=== PATIENT | female | born 1985 | race Caucasian/White ===

== ENCOUNTER → 2022-06-24 15:04 | Outpatient (BNVA) | payer OTHER, SELFPAY | PROVIDERS: Family Provider Electrodiagnostic Medicine; Visit Provider Family Medicine | DX: Z30.9 Encounter for contraceptive management, unspecified (principal) | CPT/HCPCS: 81025 ==

== ENCOUNTER → 2022-07-21 15:30 | Outpatient (BNVA) | payer OTHER, SELFPAY | PROVIDERS: Family Provider Electrodiagnostic Medicine; PCP Family Medicine; Visit Provider Family Medicine | DX: Z34.90 Encounter for supervision of normal pregnancy, unspecified, unspecified trimester (principal) | CPT/HCPCS: 80307; 81025; 84144; 84443; 84702; 85025; 86850; 86900; 87491; 87591; 87806; 99202 ==

== ENCOUNTER 2022-07-28 15:15 | Outpatient (CLI) | payer OTHER, SELFPAY ==
--- NOTE | 2022-07-28 15:00 | US_ITS ---
WS: [email or web address] EARLY OBSTETRICAL ULTRASOUND (<14 WEEKS). HISTORY: COMPARISON: None available. Single intrauterine gestational sac is identified. Cardiac activity at 160 BPM. Middleberg-rump length junior sures 1.6 cm which corresponds to a gestation of 7w6d. Normal-appearing yolk sac and amnion demonstra lyly. No subchorionic hemorrhage. No free fluid. Normal size ovaries with no mass. US/US OB <= 14 weeks fetus [id number] IMPRESSION: 1. Single intrauterine gestation of 7 weeks 6 days with EDC of 03/10/2023. 2. Normal cardiac activity.
== END 2022-07-28 15:16 | disposition home or self-care (01) ==
LOC: RAD 15:20
PROVIDERS: PCP Family Medicine; Visit Provider Family Medicine
DX: Z34.91 Encounter for supervision of normal pregnancy, unspecified, first trimester (principal); Z3A.01 Less than 8 weeks gestation of pregnancy
CPT/HCPCS: 76801; 80307; 81025; 84144; 84443; 84702; 85025; 86850; 86900; 87491; 87591; 87806

== ENCOUNTER → 2022-08-11 11:38 | Outpatient (BNVA) | payer OTHER, SELFPAY | PROVIDERS: PCP Family Medicine; Visit Provider Family Medicine | DX: Z34.90 Encounter for supervision of normal pregnancy, unspecified, unspecified trimester (principal) | CPT/HCPCS: 80307; 81000; 81025; 87086; 87491; 87591; 87624 ==

== ENCOUNTER → 2022-10-17 07:44 | Outpatient (BNVA) | payer OTHER, SELFPAY | PROVIDERS: PCP Family Medicine; Visit Provider Family Medicine | DX: Z34.80 Encounter for supervision of other normal pregnancy, unspecified trimester (principal) | CPT/HCPCS: 81511 ==

== ENCOUNTER 2022-10-24 09:11 | Outpatient (CLI) | payer OTHER, SELFPAY ==
--- NOTE | 2022-10-24 09:30 | US_ITS ---
WS: [email or web address] OBSTETRICAL ULTRASOUND COMPLETE HISTORY: Anatomy US COMPARISON: 07/28/2022 Single intrauterine gestation in Cephalic presentation. Cervix is Closed and normal length. Cervical length is 4.3 cm. Normal amount of amniotic fluid surrounds the fetus. Placenta: Placenta is anterior and low-lying. There is a [place] along the posterior uterine w all causing the lower uterine segment and cervix to be obscured. With resolution of the [place] I expect there to be no previa or low-lying placenta. This should be reevaluated. Placenta grade 0 Heart: 136 BPM. No 2-D images of the heart are submitted. Outflow tracts are not imaged. Anatomy: Intracranial structures and spine are normal. kidneys, stomach and urinary bladd er are unremarkable. Abdominal wall, three-vessel cord and cord insertion site are normal. 4 extremities are present. profile: No profile imaged. Gender: Female measurements: BPD = 4.6 cm = 20w0d; HC = 17.4 cm = 19w6d; AC = 15.5 cm = 20w4d; FL = 3.3 cm = 20w3d; EFW: 354 g. Biometry is internally concordant. AGA by ultrasound: 20w2d IRMA by ultrasound: 03/11/2023 US/US OB >= 14 weeks fetus [id number] IMPRESSION: 1. Single intrauterine gestation of 20w2d with an IRMA of 03/11/2023. Appropria te growth since the first trimester ultrasound. 2. No imaging of the heart is submitted. profile not imaged due to position of the fetus. Recommend additional imaging of the heart and pro file along with follow-up imaging of the cervix. Remaining anatomy is negative.
== END 2022-10-24 09:12 | disposition home or self-care (01) ==
PROVIDERS: PCP Family Medicine; Visit Provider Family Medicine
DX: Z34.82 Encounter for supervision of other normal pregnancy, second trimester (principal)
CPT/HCPCS: 76805; 80307; 81000; 81025; 87086; 87491; 87591; 87624

== ENCOUNTER 2022-11-17 08:19 | Outpatient (CLI) | payer OTHER, SELFPAY ==
--- NOTE | 2022-11-17 08:30 | US_ITS ---
WS: [email or web address] ULTRASOUND OB LIMITED TECHNIQUE: Limited ultrasound examination of the fetus. CLINICAL INFORMATION: Follow up imaging of profile,heart, cervix COMPARISON: 10/24/2022 FINDINGS: Closed cervix measures 4.1 cm. Single interuterine gestation. presentation is vertex placental location is anterior and low-lying with placenta previa visualized today. Placenta grade: 0 . heart rate 131 BPM. Anatomy: presentation is vertex. Normal four-chamber heart view with the RIGHT and LEFT ventric ular outflow tracts. Profile evaluation is limited due to position. No other abnormalities IMPRESSION: 1. Four-chamber heart view is visualized today with LEFT and RIGHT ventricular outflow tracts. 2. Placenta is anterior with placenta previa. Recommend third trimester follow-up. 3. Cervix is long and closed measuring 4.1 cm. 4. Limited evaluation of the profile due to positioning.
== END 2022-11-17 08:20 | disposition home or self-care (01) ==
PROVIDERS: PCP Family Medicine; Visit Provider Family Medicine
DX: O44.43 Low lying placenta NOS or without hemorrhage, third trimester (principal); Z3A.00 Weeks of gestation of pregnancy not specified
CPT/HCPCS: 76815

== ENCOUNTER → 2022-11-24 13:25 | Outpatient (BNVA) | payer OTHER, SELFPAY | PROVIDERS: PCP Family Medicine; Visit Provider Family Medicine | DX: R39.9 Unspecified symptoms and signs involving the genitourinary system (principal); Z34.80 Encounter for supervision of other normal pregnancy, unspecified trimester | CPT/HCPCS: 81000 ==

== ENCOUNTER → 2022-12-19 08:18 | Outpatient (BNVA) | payer OTHER, SELFPAY | PROVIDERS: PCP Family Medicine; Visit Provider Family Medicine | DX: O44.43 Low lying placenta NOS or without hemorrhage, third trimester | CPT/HCPCS: 82950 ==

== ENCOUNTER 2023-01-01 06:00 | Outpatient (RCR) | payer OTHER, SELFPAY | END 2023-01-27 23:59 | disposition home or self-care (01) | LOC: SPT 06:00 | PROVIDERS: PCP Family Medicine; Visit Provider Family Medicine | DX: R10.2 Pelvic and perineal pain (principal) | CPT/HCPCS: 97110; 97161; 97530 ==

== ENCOUNTER 2023-01-12 09:50 | Outpatient (CLI) | payer OTHER, SELFPAY ==
--- NOTE | 2023-01-12 10:00 | US_ITS ---
WS: [email or web address] ULTRASOUND OB FOCUSED HISTORY: Low lying placenta - follow up placenta in 9 wks COMPARISON: 11/17/2022 Single intrauterine gestation is identified in vertex position. Cervix is closed measuring 4.3 cm. heart rate at 141 BPM. Anterior placenta ends several centimeters above the internal cervical os. No previa. Placenta grade 1. Normal amount of amniotic fluid. IMPRESSION: Anterior placenta. No placenta previa.
== END 2023-01-12 09:51 | disposition home or self-care (01) ==
PROVIDERS: PCP Family Medicine; Visit Provider Family Medicine
DX: O44.43 Low lying placenta NOS or without hemorrhage, third trimester (principal); Z3A.00 Weeks of gestation of pregnancy not specified
CPT/HCPCS: 76815

== ENCOUNTER 2023-01-28 06:00 | Outpatient (RCR) | payer OTHER, SELFPAY | END 2023-02-26 23:59 | disposition home or self-care (01) | LOC: SPT 06:00 | PROVIDERS: PCP Family Medicine; Visit Provider Family Medicine | DX: R10.2 Pelvic and perineal pain (principal) | CPT/HCPCS: 97110 ==

== ENCOUNTER → 2023-02-05 10:17 | Outpatient (BNVA) | payer OTHER, SELFPAY | PROVIDERS: PCP Family Medicine; Visit Provider Family Medicine | DX: Z34.90 Encounter for supervision of normal pregnancy, unspecified, unspecified trimester (principal); Z51.81 Encounter for therapeutic drug level monitoring; Z34.80 Encounter for supervision of other normal pregnancy, unspecified trimester | CPT/HCPCS: 85025 ==

== ENCOUNTER → 2023-02-10 16:47 | Outpatient (BNVA) | payer OTHER, SELFPAY | PROVIDERS: PCP Family Medicine; Visit Provider Family Medicine | DX: Z34.80 Encounter for supervision of other normal pregnancy, unspecified trimester (principal) | CPT/HCPCS: 87081 ==

== ENCOUNTER 2023-02-26 17:14 | Outpatient (CLI) | payer OTHER, SELFPAY ==
[2023-02-26] VITALS (7 sets, daily range): BP systolic 123–135; BP diastolic 61–78; PULSE 69–90; BMI 30.4
[2023-02-26 18:18] LABS: Basophils % 0.4 %; Eosinophils # 0.2 10^3/uL (0.0-0.8); Eosinophils % 2.2 %; Hematocrit 34.9 % (36-47); Lymphocytes # 1.8 10^3/uL (0.8-4.8); Lymphocytes % 17.1 %; Mean Corpuscular HGB Conc 32.7 g/dL (30-55); Mean Corpuscular Hemoglobin 31.1 pg (27-33); Mean Corpuscular Volume 95.1 fl (85-98); Mean Platelet Volume 9.3 fL (7.4-10.4); Monocytes # 0.7 10^3/uL (0.2-0.9); Monocytes % 6.2 %; Neutrophils # 7.64 10^3/uL (1.8-7.7); Neutrophils % 72.2 %; Nucleated Red Blood Cells % 0 %; Platelet Count 182 10^3/cmm (157-399); Red Blood Count 3.67 10^6/uL (3.85-5.65); Red Cell Distribution Width 13.2 % (12.1-15.1); White Blood Count 10.58 10^3/uL (3.29-11.43)
[2023-02-26 18:28] LABS: Specific Gravity, Urine 1.015 (1.005-1.030); Urine Appearance SL Hazy (CLEAR); Urine Color Light yellow (Yellow); pH Urine 6.5 (5-7)
[2023-02-26 18:29] LABS: Bilirubin Urine Neg (Negative); Blood Urine Neg (Negative); Glucose Urine UA Norm (Normal); Ketones Urine Negative (Negative); Leukocyte Esterase Urine 1+ (Negative); Nitrate Urine Negative (Negative); Protein Urine Neg (Negative); Urobilinogen Urine Norm (Negative)
[2023-02-26 18:37] LABS: Add Urine Culture? No; Alanine Aminotransferase 11 U/L (0-33); Albumin Level 3.4 g/dL (3.5-5.2); Alkaline Phosphatase 150 U/L (35-105); Anion Gap 17.5 (5-19); Aspartate Amino Transferase 18 U/L (0-32); Bacteria Urine TRACE /hpf; Blood Urea Nitrogen 6 mg/dL (6-20); Calcium 9.1 mg/dL (8.5-10.5); Carbon Dioxide 18 mmol/L (22-29); Chloride 107 mmol/L (98-107); Fine Granular Casts Urine 0-4 /lpf; Globulin 2.8 g/dL (1.3-4.6); Glomerular Filtration Rate 179.6 mL/min (90-130); Glucose 101 mg/dL (65-115); Mucus Urine TRACE /hpf; Osmolality Calculated 286 mOsm/kg (285-295); Potassium 3.5 mmol/L (3.5-5.1); RBC Urine 0-4 /hpf (0-2); Sodium 139 mmol/L (136-145); Total Bilirubin 0.3 mg/dL (0.15-1.2); Total Protein 6.2 g/dL (6.6-8.7); Transitional Epi Cells Urine 0-4 /hpf; Uric Acid 3.1 mg/dL (2.4-5.7); WBC Urine 0-4 /hpf (0-5)
[2023-02-26 18:47] LABS: Urine Creatinine 28 mg/dL (28-217); Urine Protein Random 5 mg/dL
[2023-02-26 18:48] LABS: UPRO/UCREAT Ratio 0.18 mg/mg CR
--- NOTE | 2023-02-26 19:25 | PC.NURSE ---
1715 IV REMOVED WITH CATH INTACT.
== END 2023-02-26 19:20 | disposition home or self-care (01) ==
LOC: OPOB 17:15 → OBGYN 17:18
PROVIDERS: Absent Provider Family Medicine; PCP Family Medicine; Visit Provider Family Medicine
DX: O16.9 Unspecified maternal hypertension, unspecified trimester (principal); Z3A.00 Weeks of gestation of pregnancy not specified
CPT/HCPCS: 36415; 59025; 80053; 81000; 81001; 82570; 84156; 84550; 85025; 99211

== ENCOUNTER 2023-03-05 06:58 | Outpatient (CLI) | payer OTHER, SELFPAY ==
--- NOTE | 2023-03-05 07:15 | US_ITS ---
WS: [id number] LIMITED OBSTETRICAL ULTRASOUND HISTORY: Measuring small for gestational age - FATOUMATA/EFW COMPARISON: 07/28/2022, 01/12/2023 Presentation: Cephalic. Cervix: Closed and normal length. Placenta: Anterior, no previa or abruption. Grade: 3 HEART: FHR of 176 BPM. measurements: BPD = 9.6 cm = 39w1d; 82% HC = 34.2 cm = 39w3d; 45% AC = 35.7 cm = 39w4d; 81% FL = 7.8 cm = 39w5d; 68% FATOUMATA: 8.6 cm EFW: 3825 g; greater than the 90th percentile AGA by ultrasound: 39w3d IRMA by ultrasound: 03/09/2023 IMPRESSION: 1. Single intrauterine gestation of 39 weeks 3 days with an EDC of 03/09/2023. Appropriate biometry compared to the first trimester ultrasound. 2. Estimated weight greater than the 90th percentile for age. 3. Biometry percentiles are within normal limits. Both the abdominal circumference and BPD are just greater than the 80th percentiles. 4. Normal amniotic fluid. 5. Grade 3 placenta.
== END 2023-03-05 06:59 | disposition home or self-care (01) ==
LOC: RAD 06:58
PROVIDERS: PCP Family Medicine; Visit Provider Family Medicine
DX: O36.5930 Maternal care for other known or suspected poor fetal growth, third trimester, not applicable or unspecified (principal); Z3A.39 39 weeks gestation of pregnancy
CPT/HCPCS: 76815

== ENCOUNTER 2023-03-08 15:00 | Inpatient (IN) | payer OTHER, SELFPAY ==
[2023-03-08] VITALS (51 sets, daily range): BP systolic 110–174; BP diastolic 53–94; PULSE 77–130; RESP 16–18; TEMP 35.7–36.7; O2SAT 95–100; BMI 29.5
[2023-03-08] MEDS: fentaNYL 50 mcg/mL INJ 2mL IVP (15:13)
[2023-03-08] MEDS: lactated ringers 1,000 ML 999 ML IV ×2 (15:14→16:08)
[2023-03-08 15:49] LABS: Basophils % 0.3 %; Eosinophils # 0.1 10^3/uL (0.0-0.8); Eosinophils % 0.4 %; Hematocrit 38.9 % (36-47); Lymphocytes # 0.9 10^3/uL (0.8-4.8); Lymphocytes % 6.5 %; Mean Corpuscular HGB Conc 32.6 g/dL (30-55); Mean Corpuscular Hemoglobin 31.1 pg (27-33); Mean Corpuscular Volume 95.1 fl (85-98); Mean Platelet Volume 9.5 fL (7.4-10.4); Monocytes # 0.7 10^3/uL (0.2-0.9); Monocytes % 4.6 %; Neutrophils # 12.38 10^3/uL (1.8-7.7); Neutrophils % 87.1 %; Nucleated Red Blood Cells % 0 %; Platelet Count 166 10^3/cmm (157-399); Red Blood Count 4.09 10^6/uL (3.85-5.65); Red Cell Distribution Width 13.1 % (12.1-15.1); White Blood Count 14.21 10^3/uL (3.29-11.43)
[2023-03-08 15:59] LABS: Add Urine Microscopic? YES; Bilirubin Urine Neg (Negative); Blood Urine 3+ (Negative); Glucose Urine UA 1+ (Normal); Ketones Urine Negative (Negative); Leukocyte Esterase Urine 2+ (Negative); Nitrate Urine Negative (Negative); Protein Urine Neg (Negative); Urine Appearance Clear (CLEAR); Urine Color Straw (Yellow); Urobilinogen Urine Norm (Negative); pH Urine 7 (5-7)
[2023-03-08 16:00] LABS: Add Urine Culture? Yes; Bacteria Urine 1+ /hpf; RBC Urine 0-4 /hpf (0-2); Squamous Epithelial Cell Urine 0-4 /hpf (0-5); WBC Urine 15-25 /hpf (0-5)
--- NOTE | 2023-03-08 16:08 | ANES.PROC ---
Anesthesia Procedures Procedure/Date: 03/08/23 Epidural: Time Out Performed: Yes Consents Signed: Procedure Consent Consent: requested by attending/covering physician, from patient, risks and benefits reviewed and patient agrees to proceed Lumbar Level: L3-L4 Epidural position: sitting Epidural procedure: sterile prep of area, 1% lidocaine to numb the area, 18 g needle, neg for paresthesia, test dose given, 1.5% xylocaine 1:200k epi (5cc), 0.2% Ropivacaine bolus ml (4cc and Fentanyl 100mcg), placed PCEA, no systemic response, sterile dressing applied, L.U.D. no apparent complications and 0.2% Ropiavacaine @ mls/hr (10cc/) Additional Comments: Pt tolerated well
[2023-03-08] MEDS: ROPivacaine syringe 100 MG/50 ML SYRINGE 13 MG EPIDURAL (16:10)
--- NOTE | 2023-03-08 16:13 | ANES.PREANE2 ---
Pre-Anesthetic Assessment Height/Weight: Height 1.68 m Weight 83.007 kg Temp Pulse Resp BP Pulse Ox 96.4 F L 108 H 16 143/77 100 03/08/23 12:47 03/08/23 16:09 03/08/23 15:13 03/08/23 16:09 03/08/23 16:08 Preop Diagnosis: Labor pain YASSINE Was Beta Ritesh taken within 24 hours: N/A Was Clonidine taken within 24 hours: N/A Social No alcohol and No tobacco Exam alert, oriented x 3, clear to auscultation bilaterally and regular rate & rhythm Airway Submandibular: within normal limits Cervical ROM: within normal limits Mallampati: Class II Dentition: full History/ROS No significant history except as noted and No significant complaints Pulmonary None reported CV/HEM None reported None reported Hepatic None reported GI None reported Metabolic None reported Musc/skel None reported Neuropsych None reported Anesthetic Plan ASA status: 2 Anesthesia: Anesthesia Evaluation and Regional (specify below) (YASSINE) Risk of > 500 ml blood loss (7ml/kg in children): No Medications/Allergies Home Medications Medication Instructions Recorded Confirmed Last Taken Type prenat.vits,humberto,jza-ishe-ghusd 1 tab PO DAILY 08/11/22 02/26/23 Unknown History Allergies Allergy/AdvReac Type Severity Reaction Status Date / Time Sulfa (Sulfonamide Allergy ALGY-Rash Verified 02/05/23 09:28 Antibiotics) Current Medications Generic Name Dose Route Start Last Admin Trade Name Freq PRN Reason Stop Dose Admin Fentanyl 25 - 100 mcg 03/08/23 15:03 03/08/23 15:13 Fentanyl 50 Mcg/Ml Inj 2ml IVP 25 mcg Q1H PRN Administration SEVERE PAIN Lactated Ringer's 1,000 mls @ 999 mls/hr 03/08/23 14:44 03/08/23 16:08 Lactated Ringers IV 999 mls/hr .Q1H1M PRN Administration See label comments Ropivacaine 100 mg in 50 mls @ 13 mls/hr 03/08/23 14:45 03/08/23 16:10 Naropin Syringe EPIDURAL 13 mls/hr .Q3H51M MICHAEL Administration PFSH Anesthesia Medical History No pertinent past medical history Surgical History History of breast augmentation Family History Father Hypertension Denies family history of Colon cancer Ovarian cancer Diabetes Heart disease Hypercholesteremia Breast cancer Uterine cancer Thyroid disease Stroke Social History Smoking and tobacco/nicotine status: never used tobacco/nicotine Alcohol intake: never Substance/Drug Use: never Household members: spouse and children Marital status: Number of children: 3 Current occupational status: employed 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[employer] Sexually active: Yes Special sandro needs: No Agree to transfusion: Yes Female Reproductive History : 4 Para: 3 Spontaneous abortions: No Data Anesthesia 03/08/23 15:15 03/08/23 15:15 Short CBC 03/08/23 Range/Units 15:15 WBC 14.21 H (3.29-11.43) 10^3/uL Hgb 12.70 (11.27-16.99) g/dL Hct 38.9 (36-47) % MCV 95.1 (85-98) fl Plt Count 166 (157-399) 10^3/cmm Neut % (Auto) 87.1 % Neut # (Auto) 12.38 H (1.8-7.7) 10^3/uL Urine 03/08/23 Range/Units 15:15 Urine Color Straw (Yellow) Urine Appearance Clear (CLEAR) Urine pH 7 (5-7) Ur Specific [place] 1.000 L (1.005-1.030) Urine Protein Neg (Negative) Urine Glucose (UA) 1+ H (Normal) Urine Ketones Negative (Negative) Urine Nitrate Negative (Negative) Urine Bilirubin Neg (Negative) Ur Leukocyte Esterase 2+ H (Negative) Urine RBC 0-4 H (0-2) /hpf Urine WBC 15-25 H (0-5) /hpf Cardiac Studies: No Data to Display
[2023-03-08 16:15] LABS: Urine Creatinine 20 mg/dL (28-217); Urine Protein Random 4 mg/dL
[2023-03-08 16:17] LABS: Alanine Aminotransferase 10 U/L (0-33); Albumin Level 3.6 g/dL (3.5-5.2); Alkaline Phosphatase 158 U/L (35-105); Anion Gap 15.3 (5-19); Aspartate Amino Transferase 16 U/L (0-32); Blood Urea Nitrogen 5 mg/dL (6-20); Carbon Dioxide 20 mmol/L (22-29); Chloride 100 mmol/L (98-107); Globulin 3.1 g/dL (1.3-4.6); Glomerular Filtration Rate 179.6 mL/min (90-130); Glucose 90 mg/dL (65-115); Osmolality Calculated 271 mOsm/kg (285-295); Potassium 3.3 mmol/L (3.5-5.1); Sodium 132 mmol/L (136-145); Total Bilirubin 0.4 mg/dL (0.15-1.2); Total Protein 6.7 g/dL (6.6-8.7); Uric Acid 3.3 mg/dL (2.4-5.7)
--- NOTE | 2023-03-08 17:40 | P.HP_ITS ---
Providers/Chief Complaint 2 Admitting Physician: Paul Jackson MD Primary Care Provider: Paul Jackson MD Chief Complaint: contractions and vaginal bleeding History of Present Illness Gege Pulido is a 37 year old @ 39.3 wks by LMP consistent with 7 wk US. Preg c/b advanced maternal age, h/o quick delivery, intermittent elevated BP. The patient presented to labor and delivery triage on the morning of 03/08/2023 with concern for contractions. Contractions started at approximately 3:30 in the morning on 03/08/2023. They continued to get more frequent and more intense so she presented to labor and delivery. She initially did not make any change after 2 and half hours and was given the option of going home versus waiting another hour. After 1 more hour she did start to make change and had changed from 1 cm upon presentation to 3 cm dilation. For this reason she was kept for spontaneous labor. The patient denies any chest pains, shortness of breath, nausea, vomiting, diarrhea, constipation, leakage of fluid, vaginal bleeding, dysuria, fever. She has had some sore throat that started this morning. Medications/Allergies Home Medications Medication Instructions Recorded Confirmed Last Taken Type prenat.vits,humberto,xlv-rftp-iojni 1 tab PO DAILY 08/11/22 02/26/23 Unknown History Allergies Allergy/AdvReac Type Severity Reaction Status Date / Time Sulfa (Sulfonamide Allergy ALGY-Rash Verified 02/05/23 09:28 Antibiotics) PFSH Acute 2 PFSH: Medical History No pertinent past medical history Surgical History History of breast augmentation Family History Father Hypertension Denies family history of Colon cancer Ovarian cancer Diabetes Heart disease Hypercholesteremia Breast cancer Uterine cancer Thyroid disease Stroke Social History Smoking and tobacco/nicotine status: never used tobacco/nicotine Alcohol intake: never Substance/Drug Use: never Household members: spouse and children Marital status: Number of children: 3 Current occupational status: employed 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[employer] Sexually active: Yes Special sandro needs: No Agree to transfusion: Yes Female Reproductive History: : 4 Para: 3 Spontaneous abortions: N o Vitals/I&O/Wt Last Vital Signs Temp 97.2 F L 03/08/23 17:20 Pulse 99 03/08/23 17:28 Resp 16 03/08/23 15:13 BP 110/53 03/08/23 17:28 Pulse Ox 100 03/08/23 16:38 O2 Del Method Room Air 03/08/23 15:30 03/08/23 03/08/23 03/08/23 06:59 14:59 22:59 Intake Total 899.1 / 899.1 Balance 899.1 / 899.1 Weight last 48 hrs Weight 183 lb Physical Exam 2 Narrative: General: Alert and oriented x3 Eyes: Pupils equal round and reactive to light and accommodation Mouth: Mucous membranes moist, pharynx non-erythematous Cardiac: Regular rate and rhythm without murmurs Lungs: Clear to auscultation bilaterally without wheezes, crackles or rhonchi Abdomen: Soft, non-tender, fundus consistent with gestational age Extremities: Trace edema in the bilateral lower extremities Urinary Catheter Management: Garcia: Cath Placed During This Visit: yes Urinary Catheter Date of Insertion: 03/08/23 Urinary Catheter Time of Insertion: 16:25 Data 03/08/23 15:15 03/08/23 15:15 A&P Assessment and plan (1) Supervision of normal intrauterine in multigravida: We will plan to proceed with routine spontaneous labor. The patient is GBS negative. The patient will receive a laboring epidural at her request. Will watch her blood pressures as they have been elevated intermittently. I suspect that this is likely due to pain. Preeclamptic labs will be drawn. Qualifiers: Trimester: third trimester Qualified Code(s): Z34.83 - Encounter for supervision of other normal , third trimester (2) Elevated blood-pressure reading without diagnosis of hypertension: Attestations 2 Medical Necessity Statement*: The patient will be here for greater than 2 midnights due to routine intrapartum and management of labor and delivery. Coding Level of Care Code Acute Code for Chg Fwd Diagnoses Supervision of normal intrauterine in multigravida in third trimester Z34.83 Trimester: third trimester Elevated blood-pressure reading without diagnosis of hypertension R03.0
--- NOTE | 2023-03-08 17:48 | P.PCNOB_ITS ---
Delivery Note: Date of delivery: March 08, 2023 Pre-delivery diagnoses: 1. Intrauterine at 39.3 weeks gestation 2. Advanced maternal age 3. Intermittent elevated blood pressure s Post-delivery diagnoses: 1. Intrauterine status post s pontaneous vaginal delivery at 39.3 weeks gestation 2. Advanced maternal age 3. Intermittent elevated blood pressure s 4. Delivery of healthy female we ighing 7 pounds 14 ounces with Apgars of 9 and 9 Procedure: Spontaneous vaginal delivery Delivering Physician: Paul Jackson MD Estimated blood loss (mL): 50 Findings: 1. Healthy female weighing 7 mundo nds 14 ounces with Apgars of 9 and 9 2. Intact placenta with central umbilic al cord insertion site. Pre-Delivery Course: Gege Pulido is a 37 year old G4 now P4 status post spontaneous vaginal delivery @ 39.3 wks by LMP consistent with 7 wk US. Preg c/b advanced maternal age, h/o quick delivery, intermittent elevated BP. The patient presented to labor and delivery triage on the morning of 03/08/2023 with concern for contractions. Contractions started at approximately 3:30 in the morning on 03/08/2023. They continued to get more frequent and more intense so she presented to labor and delivery. She initially did not make any change after 2 and half hours and was given the option of going home versus waiting a nother hour. After 1 more hour she did start to make change and had changed from 1 cm upon presentation to 3 cm dilation. For this reason she was kept for spontaneous labor. The patient began to leak fluid at approximately 1320 on 03/08/2023. She received a laboring epidural. The patient then made rapid change and was complete by 1642 on 03/08/2023. Delivery: The patient began pushing at 1653 on 03/08/2023. The patient pushed well and the delivered in the OA position at 1703 on 03/08/2023. The left shoulder was the anterior shoulder and it delivered with ease. The rest of the infant delivered without complication. The 's mouth and nose were bulb suction by myself. The was crying immediately upon delivery. Amniotic fluid was clear. The infant was placed on the mother's chest where the nurses were waiting to care for her. The cord was clamped by myself and cut by the infant's father. Cord blood was obtained. The cord was then drained of blood and traction was placed on the umbilical cord. Uterine massage was carried out. The placenta delivered at 1718 on 03/08/2023 without complication. The placenta was noted to be intact with a central umbilical cord insertion site. The vaginal wall was inspected and an abrasion was noted in the perineal region as well as the periurethral region. Neither was bleeding or needed suturing. Currently both the mother and infant are doing well. History History History 4 Term 3 0 Miscarriages/Ectopic 0 Living Children 3 Past Pregnancies Del. Date GA/Weeks Outcome Route Wt Inf Gender Labor Lgth Comp. Anesth esia Location 10/11/04 39 live - full term Vaginal 7 lb 10 oz Female 8 hrs [facility] [place] 03/16/15 39 live - full term Vaginal 7 lb 9 oz Female 8 hrs [facility] 12/10/17 40 live - full term Vaginal 8 lb 10 oz Male [facility] 03/08/23 39 live - full term Vaginal 7 lb 14 oz Female [facility] Delivery Date: 10/11/04 Last Updated by: Paul Jackson MD No epidural Delivery Date: 03/16/15 Last Updated by: Paul Jackson MD Induced with pitocin Delivery Date: 12/10/17 Last Updated by: Paul Jackson MD Spontaneous labor A&P Assessment and plan (1) Spontaneous vaginal delivery: (2) Elevated blood-pressure reading without diagnosis of hypertension: Coding Level of Care Code Acute Code for Chg Fwd Diagnoses Spontaneous vaginal delivery O80 Elevated blood-pressure reading without diagnosis of hypertension R03.0
[2023-03-08] MEDS: dextrose 5%-lactated ringers 1,000 ML 125 ML IV (18:11)
[2023-03-08] MEDS: ibuprofen 800 mg tablet PO (21:29)
[2023-03-08] MEDS: benzocaine-menthol 78 gm Canister 1 SPRAY TOPICAL (21:29)
[2023-03-08] MEDS: docusate sodium 100 mg Capsule PO (21:29)
[2023-03-08] MEDS: lanolin oint 7 gm 1 APPLIC TOPICAL (21:29)
[2023-03-09 00:48] VITALS: BP 129/80; PULSE 72; RESP 18; TEMP 36.8; O2SAT 96
[2023-03-09 04:00] VITALS: BP 136/79; PULSE 70; RESP 16; TEMP 36.4; O2SAT 96
[2023-03-09 05:42] LABS: Hematocrit 33.9 % (36-47); Mean Corpuscular HGB Conc 33.3 g/dL (30-55); Mean Corpuscular Hemoglobin 31.7 pg (27-33); Mean Platelet Volume 9.6 fL (7.4-10.4); Platelet Count 163 10^3/cmm (157-399); Red Blood Count 3.57 10^6/uL (3.85-5.65); Red Cell Distribution Width 12.9 % (12.1-15.1); White Blood Count 15.21 10^3/uL (3.29-11.43)
--- NOTE | 2023-03-09 08:00 | ANE.PACU2 ---
Inpatient post-anesthesia follow up: Airway intact: Yes Vital signs: Temperature 98.1 F Pulse Rate 79 Respiratory Rate 16 Blood Pressure 140/75 Pulse Oximetry 98 Oxygen Delivery Me thod Room Air Oxygen Flow Rate Fraction of Inspir ed Oxygen Hydration adequate: Yes Nausea and vomiting: No Pain level: 1 Mental status: Baseline
[2023-03-09] MEDS: prenatal vitamin Capsule 1 CAP PO (09:17)
[2023-03-09] MEDS: potassium chloride ER 10 mEq Tablet PO (09:17)
[2023-03-09] MEDS: ibuprofen 800 mg tablet PO ×2 (09:17→15:59)
[2023-03-09] MEDS: docusate sodium 100 mg Capsule PO (09:17)
[2023-03-09 10:00] VITALS: BP 142/87; PULSE 86; RESP 16; TEMP 36.7; O2SAT 97
[2023-03-09 16:01] VITALS: BP 137/62; PULSE 85; RESP 16; O2SAT 97
--- NOTE | 2023-03-09 17:40 | PM.DCS ---
Discharge Providers Date of Admission: 03/08/23 15:00 Date of Discharge: March 09, 2023 Attending Provider at Admission: Paul Jackson MD Attending Provider at Discharge: Paul Jackson MD Primary Care Provider: Paul Jackson MD Diagnoses at Discharge Discharge Diagnosis (1) Spontaneous vaginal delivery: Status: Acute (2) Elevated blood-pressure reading without diagnosis of hypertension: Status: Acute Other Information Additional DC diagnoses/information: 1. Intrauterine status post spontaneous vaginal delivery at 39.3 weeks gestation 2. Advanced maternal age 3. Intermittent elevated blood pressures 4. Delivery of healthy female weighing 7 pounds 14 ounces with Apgars of 9 and 9 Reason for Visit Reason for Visit: contractions and vaginal bleeding Brief History: Gege Pulido is a 37 year old G4 now P4 status post spontaneous vaginal delivery @ 39.3 wks by LMP consistent with 7 wk US. Preg c/b advanced maternal age, h/o quick delivery, intermittent elevated BP. Hospital Course Hospital Course The patient presented to labor and delivery triage on the morning of 03/08/2023 with concern for contractions. Contractions started at approximately 3:30 in the morning on 03/08/2023. They continued to get more frequent and more intense so she presented to labor and delivery. She initially did not make any change after 2 and half hours and was given the option of going home versus waiting another hour. After 1 more hour she did start to make change and had changed from 1 cm upon presentation to 3 cm dilation. For this reason she was kept for spontaneous labor. The patient began to leak fluid at approximately 1320 on 03/08/2023. She received a laboring epidural. The patient then made rapid change and was complete by 1642 on 03/08/2023. The patient began pushing at 1653 on 03/08/2023. The patient pushed well and the infant delivered in the OA position at 1703 on 03/08/2023. The left shoulder was the anterior shoulder and it delivered with ease. The rest of the infant delivered without complication. The 's mouth and nose were bulb suction by myself. The infant was crying immediately upon delivery. Amniotic fluid was clear. The was placed on the mother's chest where the nurses were waiting to care for her. The cord was clamped by myself and cut by the 's father. Cord blood was obtained. The cord was then drained of blood and traction was placed on the umbilical cord. Uterine massage was carried out. The placenta delivered at 1718 on 03/08/2023 without complication. The placenta was noted to be intact with a central umbilical cord insertion site. The vaginal wall was inspected and an abrasion was noted in the perineal region as well as the periurethral region. Neither was bleeding or needed suturing. the patient has done very well without any signs of complications. The patient is ambulating, voiding, passing gas and tolerating food by mouth. Routine discharge instructions were discussed. All questions were answered. The patient is in agreement with discharge home at this time. She will follow-up with me at 6 weeks or sooner if needed. She is to keep an eye on her blood pressure. Physical Exam Narrative: General: Alert and oriented x3 Cardiac: Regular rate and rhythm without murmurs Lungs: Clear to auscultation bilaterally without wheezes, crackles or rhonchi Abdomen: Soft, mild tenderness over uterus. The uterus is firm and 2 cm below the umbilicus. Extremities: Trace edema in the bilateral lower extremities Urinary Catheter Management: Garcia: Cath Placed During This Visit: yes, but has since been removed by the nurse Reason for Continuing Indwelling Catheter: Other Urinary Catheter Date of Insertion: 03/08/23 Urinary Catheter Time of Insertion: 16:25 Date Urinary Catheter Removed: 03/08/23 Time Urinary Catheter Discontinued: 16:50 Discharge Data Studies Completed and Pending Laboratory Results WBC 15.21 10^3/uL (3.29-11.43) H 03/09/23 05:22 RBC 3.57 10^6/uL (3.85-5.65) L 03/09/23 05:22 Hgb 11.30 g/dL (11.27-16.99) 03/09/23 05:22 Hct 33.9 % (36-47) L 03/09/23 05:22 MCV 95.0 fl (85-98) 03/09/23 05:22 MCH 31.7 pg (27-33) 03/09/23 05:22 MCHC 33.3 g/dL (30-55) 03/09/23 05:22 RDW 12.9 % (12.1-15.1) 03/09/23 05:22 Plt Count 163 10^3/cmm (157-399) 03/09/23 05:22 MPV 9.6 fL (7.4-10.4) 03/09/23 05:22 Neut % (Auto) 87.1 % 03/08/23 15:15 Lymph % (Auto) 6.5 % 03/08/23 15:15 [place] % (Auto) 4.6 % 03/08/23 15:15 Eos % (Auto) 0.4 % 03/08/23 15:15 Baso % (Auto) 0.3 % 03/08/23 15:15 Neut # (Auto) 12.38 10^3/uL (1.8-7.7) H 03/08/23 15:15 Lymph # (Auto) 0.9 10^3/uL (0.8-4.8) 03/08/23 15:15 [place] # (Auto) 0.7 10^3/uL (0.2-0.9) 03/08/23 15:15 Eos # (Auto) 0.1 10^3/uL (0.0-0.8) 03/08/23 15:15 Baso # (Auto) 0.0 10^3/uL (0.0-0.1) 03/08/23 15:15 Nucleated RBC % (auto) 0 % 03/08/23 15:15 Nucleated RBCs # 0.0 /100WBC 03/08/23 15:15 Sodium 132 mmol/L (136-145) L 03/08/23 15:15 Potassium 3.3 mmol/L (3.5-5.1) L 03/08/23 15:15 Chloride 100 mmol/L (98-107) 03/08/23 15:15 Carbon Dioxide 20 mmol/L (22-29) L 03/08/23 15:15 Anion Gap 15.3 (5-19) 03/08/23 15:15 BUN 5 mg/dL (6-20) L 03/08/23 15:15 Creatinine 0.4 mg/dL (0.5-0.9) L 03/08/23 15:15 GFR Calculation 179.6 mL/min (90-130) H 03/08/23 15:15 Glucose 90 mg/dL (65-115) 03/08/23 15:15 Calculated Osmolality 271 mOsm/kg (285-295) L 03/08/23 15:15 Uric Acid 3.3 mg/dL (2.4-5.7) 03/08/23 15:15 Calcium 9.0 mg/dL (8.5-10.5) 03/08/23 15:15 Total Bilirubin 0.4 mg/dL (0.15-1.2) 03/08/23 15:15 AST 16 U/L (0-32) 03/08/23 15:15 ALT 10 U/L (0-33) 03/08/23 15:15 Alkaline Phosphatase 158 U/L (35-105) H 03/08/23 15:15 Total Protein 6.7 g/dL (6.6-8.7) 03/08/23 15:15 Albumin 3.6 g/dL (3.5-5.2) 03/08/23 15:15 Globulin 3.1 g/dL (1.3-4.6) 03/08/23 15:15 Urine Color Straw (Yellow) 03/08/23 15:15 Urine Appearance Clear (CLEAR) 03/08/23 15:15 Urine pH 7 (5-7) 03/08/23 15:15 Ur Specific [place] 1.000 (1.005-1.030) L 03/08/23 15:15 Urine Protein Neg (Negative) 03/08/23 15:15 Urine Glucose (UA) 1+ (Normal) H 03/08/23 15:15 Urine Ketones Negative (Negative) 03/08/23 15:15 Urine Blood 3+ (Negative) H 03/08/23 15:15 Urine Nitrate Negative (Negative) 03/08/23 15:15 Urine Bilirubin Neg (Negative) 03/08/23 15:15 Urine Urobilinogen Norm mg/dL (Negative) 03/08/23 15:15 Ur Leukocyte Esterase 2+ (Negative) H 03/08/23 15:15 Urine RBC 0-4 /hpf (0-2) H 03/08/23 15:15 Urine WBC 15-25 /hpf (0-5) H 03/08/23 15:15 Ur Squamous Epith Cells 0-4 /hpf (0-5) H 03/08/23 15:15 Amorphous Sediment Not Reportable 03/08/23 15:15 Urine Bacteria 1+ /hpf (NONE) H 03/08/23 15:15 U Random Total Protein 4 mg/dL 03/08/23 15:15 Urine Creatinine 20 mg/dL (28-217) L 03/08/23 15:15 Protein/Creatinin Ratio 0.20 mg/mg CR 03/08/23 15:15 Blood Type O Positive 03/08/23 15:15 Rho(D) Type Rh positive 03/08/23 15:15 Antibody Screen Negative 03/08/23 15:15 Vitals Last Vital Signs Temp 98.1 F 03/09/23 10:00 Pulse 85 03/09/23 16:01 Resp 16 03/09/23 16:01 BP 137/62 03/09/23 16:01 Pulse Ox 97 03/09/23 16:01 O2 Del Method Room Air 03/09/23 16:01 Discharge Plan Discharge Patient Disposition: Home Condition: Stable Prescriptions: No Action prenat.vits,humberto,[id number] Tablet 1 tab PO DAILY Adacel(Tdap Adolesn/Adult)(PF) 2 Lf-(2.5-5-3-5 mcg)-5Lf/0.5 mL syringe 0.5 ml IM ONCE Qty: 0.5 0RF Discharge Orders: Discharge Order (Routine); Ordered 03/09/23 Ordered By: Paul Jackson Referrals: Paul Jackson MD [Primary Care Provider] - 6 Weeks Discharge Diet: Regular Discharge Activity: Limit activity as instructed Patient Instructions: Depression (DC), Bleeding (DC), Preeclampsia and Eclampsia After Delivery (GEN), OB Discharge Report, OB Food/Drug Interaction Guide, OB Care at Home, OB Home Care, OB Undelivered Discharge, OB Vaginal Deliveries, Abnormal Bleeding Activity Restrictions/Additional Instructions: Nothing per vagina for 6 weeks. Showers are recommended instead of baths for the first 6 weeks. Keep an eye on your blood pressure and if getting over 150/100, please contact Dr. Jackson for further recommendations. Discharge Attestations Time Spent in Discharge Care*: greater than 30 min Quality Metrics Clinical Quality Measures [ No reported AMI, CVA or VTE this stay] Coding Level of Care Code Acute Code for Chg Fwd Diagnoses Spontaneous vaginal delivery O80 Elevated blood-pressure reading without diagnosis of hypertension R03.0
[2023-03-09 18:45] VITALS: BP 140/75; PULSE 79; RESP 16; TEMP 36.7; O2SAT 98
== END 2023-03-09 18:45 | disposition home or self-care (01) | DRG 807 ==
LOC: OBGYN 17:16
PROVIDERS: Admitting Provider Family Medicine; PCP Family Medicine; Visit Provider Family Medicine
DX: O75.89 Other specified complications of labor and delivery (principal); Z37.0 Single live birth; R03.0 Elevated blood-pressure reading, without diagnosis of hypertension; Z3A.39 39 weeks gestation of pregnancy; O71.82 Other specified trauma to perineum and vulva
CPT/HCPCS: 36415; 51702; 59025; 59409; 80053; 81001; 82570; 84156; 84550; 85025; 85027; 86850; 86900; 96374; 96376; 99211; J2795; J3010; J7120; J7121